=== PATIENT | female | born 1940 | race Caucasian/White ===

== ENCOUNTER 2019-07-02 07:42 | Day surgery (SDC) | payer MEDICARE ==
[2019-07-02] MEDS ORDERED: Depo-Medrol 40 MG/ML IM ONE (07:43)
[2019-07-02] MEDS ORDERED: Marcaine 0.5% SDV 10 ML IJ ONE (07:43)
[2019-07-02] MEDS ORDERED: DIPRIVAN 200 MG/20 ML IV ONE (08:09)
[2019-07-02] MEDS ORDERED: Ketamine HCl 50 MG/ML ONE (08:09)
--- NOTE | 2019-07-02 10:30 | XRAY ---
8 seconds fluoroscopy time in surgery for left intra-articular knee injection.
--- NOTE | 2019-07-02 10:30 | XRAY ---
Indication: Left knee injection. Intraoperative fluoroscopy was provided for 8 seconds. Single digital spot image submitted for interpretation demonstrates needle tip projecting over the left femur intercondylar notch. Small amount of contrast injected for needle tip placement. Correlate with intraoperative findings/report.
[2019-07-02] MEDS ORDERED: Lactated Ringers 1,000 ML IV ONE (14:50)
== END 2019-07-02 09:15 | disposition home or self-care (01) ==
LOC: SDC-PAIN 07:42
PROVIDERS: ATTEND Psychiatry & Neurology Pain Medicine
DX: M17.12 Unilateral primary osteoarthritis, left knee (principal); M25.562 Pain in left knee; E11.9 Type 2 diabetes mellitus without complications; I10 Essential (primary) hypertension; G89.29 Other chronic pain; Z79.01 Long term (current) use of anticoagulants; Z79.899 Other long term (current) drug therapy
CPT/HCPCS: 20610; 73560; 77002; 82962; J1030; J2704; Q9966